=== PATIENT | male | born 1965 | race African-American/Black ===

== ENCOUNTER 2019-07-28 06:31 | Inpatient (IN) | payer MEDICAID ==
[~2019-07-28] VITALS: Ht 175.3 cm; Wt 126.4 kg
[2019-07-28 08:21] LABS: CHLORIDE 103 mEq/L (98-107)
[2019-07-28 08:24] LABS: INR 1.5; PROTHROMBIN TIME 15.6 sec (9.6-11.0)
[2019-07-28] MEDS ORDERED: MORPHINE SULFATE 4 MG/ML CPJ (NOT FOR IM USE) IV STA (08:28)
[2019-07-28] MEDS ORDERED: ONDANSETRON HCL 4MG/2ML INJ IV STA (08:28)
[2019-07-28 08:31] LABS: BASOPHILS % 0.6 % (0.0-2.0); EOSINOPHILS % 2.9 % (0.0-5.0); HEMATOCRIT. 45.2 % (42.0-52.0); HEMOGLOBIN. 15.7 g/dL (14.0-18.0); LYMPHOCYTES % 27.5 % (20.0-50.0); MEAN CORPUSCULAR HEMOGLOBIN 29.5 pg (28.0-32.0); MEAN CORPUSCULAR VOLUME 84.8 fL (80.0-94.0); MEAN PLATELET VOLUME 8.8 fl (7.4-10.4); MONOCYTES % 9.7 % (2.0-8.0); NEUTROPHILS % 59.3 % (40.0-76.0); PLATELET 195 x1000/uL (130-400); RED BLOOD CELL COUNT 5.33 mill/uL (4.7-6.1); RED CELL DISTRIBUTION WIDTH 15.8 % (11.6-14.6)
[2019-07-28 09:35] LABS: CLARITY URINE CLEAR (CLEAR); COLOR URINE YELLOW (YELLOW); KETONES URINE NEGATIVE (NEGATIVE); LEUKOCYTE ESTERASE URINE 1+ (NEGATIVE); NITRITE URINE NEGATIVE (NEGATIVE); OCCULT BLOOD URINE NEGATIVE (NEGATIVE); PROTEIN URINE NEGATIVE (NEGATIVE); UROBILINOGEN URINE 0.2 E.U./dL (0.2-1.0)
[2019-07-28] MEDS ORDERED: CEFTRIAXONE 1 G PREMIX 50 ML IV ONE (10:00)
[2019-07-28] MEDS: SODIUM CHLORIDE 0.9% 1,000 ML IV SCH (11:25)
[2019-07-28] MEDS ORDERED: ACETAMINOPHEN 325MG TABLET PO PRN (11:30)
[2019-07-28] MEDS ORDERED: CLONIDINE 0.1MG TABLET PO PRN (11:30)
[2019-07-28] MEDS ORDERED: ONDANSETRON HCL 4MG/2ML INJ IV PRN (11:30)
[2019-07-28] MEDS ORDERED: IPRATROPIUM/ALBUTEROL 0.5-3(2.5)MG/3ML NEB HHN PRN (11:30)
[2019-07-28] MEDS ORDERED: LORAZEPAM 2MG/ML CPJ IV ONE (11:45)
[2019-07-28 20:00] VITALS: BP 146/83
[2019-07-28] MEDS ORDERED: DEXTROSE 50% WATER 50ML SYRINGE IV PRN (21:00)
[2019-07-28] MEDS: BLOOD SUGAR DIAGNOSTIC STRIP TEST SCH (21:25)
[2019-07-28] MEDS: INSULIN LISPRO 100 UNITS/ML SUBCUT SCH (21:52)
[2019-07-28] MEDS: MORPHINE SULFATE 2 MG/ML CPJ (NOT FOR IM USE) IV PRN (21:57)
[2019-07-29] VITALS: BP 140/82
[2019-07-29] MEDS ORDERED: INSU100V3 SUBCUT (00:59)
[2019-07-29] MEDS ORDERED: METF-414 MT (00:59)
[2019-07-29] MEDS: SODIUM CHLORIDE 0.9% 1,000 ML IV SCH ×2 (03:33→11:31)
[2019-07-29 04:00] VITALS: BP 143/78
[2019-07-29 06:29] LABS: BASOPHILS % 0.7 % (0.0-2.0); EOSINOPHILS % 2.4 % (0.0-5.0); LYMPHOCYTES % 33.4 % (20.0-50.0); MEAN CORPUSCULAR HEMOGLOBIN 28.9 pg (28.0-32.0); MEAN CORPUSCULAR VOLUME 84.6 fL (80.0-94.0); MEAN PLATELET VOLUME 8.6 fl (7.4-10.4); MONOCYTES % 12.6 % (2.0-8.0); NEUTROPHILS % 50.9 % (40.0-76.0); PLATELET 168 x1000/uL (130-400); RED CELL DISTRIBUTION WIDTH 15.3 % (11.6-14.6)
[2019-07-29 06:54] LABS: CHLORIDE 107 mEq/L (98-107)
[2019-07-29] MEDS: BLOOD SUGAR DIAGNOSTIC STRIP TEST SCH ×4 (06:56→20:50)
[2019-07-29 07:04] LABS: LDL CHOLESTEROL 85 mg/dL (5-100)
[2019-07-29 07:06] LABS: HDL CHOLESTEROL 32 mg/dL (40-59)
[2019-07-29] MEDS: INSULIN LISPRO 100 UNITS/ML SUBCUT SCH ×4 (07:50→21:02)
[2019-07-29 08:00] VITALS: BP 130/76
[2019-07-29] MEDS: MORPHINE SULFATE 2 MG/ML CPJ (NOT FOR IM USE) IV PRN (09:03)
[2019-07-29 12:00] VITALS: BP 120/72
[2019-07-29 16:00] VITALS: BP 134/86
[2019-07-29] MEDS: DEXAMETHASONE 4MG/ML 1ML VIAL IV SCH ×2 (17:20→23:36)
[2019-07-29 17:23] LABS: INR 1.5; PROTHROMBIN TIME 15.9 sec (9.6-11.0)
[2019-07-29] MEDS: DEXT 5%/LACTATED RINGERS 1,000 ML IV SCH (18:23)
[2019-07-29] MEDS: NICOTINE 21MG PATCH TD SCH (18:47)
[2019-07-29 20:00] VITALS: BP 152/74
[2019-07-30] VITALS: BP 148/59
[2019-07-30 04:00] VITALS: BP 124/58
[2019-07-30] MEDS: DEXAMETHASONE 4MG/ML 1ML VIAL IV SCH ×4 (06:07→23:15)
[2019-07-30] MEDS: BLOOD SUGAR DIAGNOSTIC STRIP TEST SCH ×4 (06:24→21:18)
[2019-07-30 07:07] LABS: INR 1.3; PROTHROMBIN TIME 13.9 sec (9.6-11.0)
[2019-07-30] MEDS: DEXT 5%/LACTATED RINGERS 1,000 ML IV SCH ×2 (07:24→21:13)
[2019-07-30 08:00] VITALS: BP 127/60
[2019-07-30] MEDS: INSULIN LISPRO 100 UNITS/ML SUBCUT SCH ×4 (08:41→21:22)
[2019-07-30] MEDS: NICOTINE 21MG PATCH TD SCH (08:45)
[2019-07-30 12:00] VITALS: BP 126/67
[2019-07-30 14:53] LABS: BG BASE EXCESS -0.4 mmol/L (-2.0-2.0); BG CARBOXYHEMOGLOBIN 0.6 % (0.5-1.5); BG DEOXYHEMOGLOBIN 2.3 % (0.0-5.0); BG FRACTION INSPIRED OXYGEN 21; BG HCO3 ACT 22.9 mmol/L (22.0-26.0); BG METHEMOGLOBIN 0.1 % (0.0-1.5); BG OXYGEN SATURATION 97.7 % (92.0-98.5); BG PCO2 34.3 mmHg (35.0-45.0); BG PH 7.443 (7.350-7.450); BG PO2 100.1 mmHg (75.0-100.0); BG SAMPLE SITE RIGHT RADIAL; BG TOTAL HEMOGLOBIN 16.1 g/dL (12.0-18.0); BG VENT MODE ROOM AIR
[2019-07-30 16:00] VITALS: BP 127/69
[2019-07-30] MEDS ORDERED: PHYTONADIONE 10MG/ML AMP SUBCUT NR (16:00)
[2019-07-30 20:00] VITALS: BP 132/64
[2019-07-31] VITALS (51 sets, daily range): BP systolic 108–165; BP diastolic 20–120
[2019-07-31 05:14] LABS: BASOPHILS % 0.5 % (0.0-2.0); HEMOGLOBIN. 14.9 g/dL (14.0-18.0); MEAN CORPUSCULAR HEMOGLOBIN 29.2 pg (28.0-32.0); MEAN CORPUSCULAR VOLUME 84.7 fL (80.0-94.0); MONOCYTES % 2.1 % (2.0-8.0); NEUTROPHILS % 88.4 % (40.0-76.0); PLATELET 161 x1000/uL (130-400); RED BLOOD CELL COUNT 5.08 mill/uL (4.7-6.1); RED CELL DISTRIBUTION WIDTH 15.5 % (11.6-14.6)
[2019-07-31 05:16] LABS: INR 1.2; PROTHROMBIN TIME 12.2 sec (9.6-11.0)
[2019-07-31 05:39] LABS: CHLORIDE 108 mEq/L (98-107)
[2019-07-31 05:45] LABS: PHOSPHORUS 2.8 mg/dL (2.5-4.9)
[2019-07-31] MEDS: DEXAMETHASONE 4MG/ML 1ML VIAL IV SCH ×3 (06:25→17:33)
[2019-07-31] MEDS: BLOOD SUGAR DIAGNOSTIC STRIP TEST SCH ×4 (06:25→21:49)
[2019-07-31] MEDS: INSULIN LISPRO 100 UNITS/ML SUBCUT SCH ×4 (08:02→21:55)
[2019-07-31] MEDS: NICOTINE 21MG PATCH TD SCH (08:03)
[2019-07-31] MEDS ORDERED: BACITRACIN 50,000 UNITS/VIAL ONE (10:16)
[2019-07-31] MEDS ORDERED: LIDOCAINE HCL/EPINEPHRINE 1%-EPI 1:100,000 20 ML VIAL ONE (10:16)
[2019-07-31] MEDS ORDERED: THROMBIN (BOVINE) 5000 UNITS/VIAL TOP ONE (10:16)
[2019-07-31] MEDS ORDERED: FENTANYL CITRATE/PF 50MCG/ML 2ML VIAL ONE (10:34)
[2019-07-31] MEDS ORDERED: PROPOFOL 200MG/20ML VIAL IV ONE (10:34)
[2019-07-31] MEDS ORDERED: GLYCOPYRROLATE 0.2 MG/ML 2ML VIAL ONE (10:35)
[2019-07-31] MEDS ORDERED: MIDAZOLAM HCL 2 MG/2 ML VIAL ONE (10:35)
[2019-07-31] MEDS ORDERED: EPHEDRINE SULFATE 50MG/ML VIAL ONE (10:36)
[2019-07-31] MEDS ORDERED: LIDOCAINE HCL/PF 1% 10 MG/ML 5ML VIAL ONE (10:36)
[2019-07-31] MEDS ORDERED: CEFAZOLIN SODIUM 1000MG/VIAL ONE (10:36)
[2019-07-31] MEDS ORDERED: ROCURONIUM BROMIDE 10MG/ML VIAL 5ML IV ONE (10:40)
[2019-07-31] MEDS: DEXT 5%/LACTATED RINGERS 1,000 ML IV SCH ×2 (11:00→21:50)
[2019-07-31] MEDS ORDERED: ONDANSETRON HCL 4MG/2ML INJ ONE (11:16)
[2019-07-31] MEDS ORDERED: METOCLOPRAMIDE HCL 10MG/2ML VIAL ONE (11:16)
[2019-07-31] MEDS ORDERED: MEPERIDINE HCL/PF 25MG/ML CPJ IV PRN (12:30)
[2019-07-31] MEDS ORDERED: LABETALOL HCL 20MG/4ML CARPUJECT IV PRN (12:30)
[2019-07-31] MEDS ORDERED: ONDANSETRON HCL 4MG/2ML INJ IV PRN (12:30)
[2019-07-31] MEDS ORDERED: HYDROMORPHONE HCL/PF 2MG/ML CPJ IV PRN (12:30)
[2019-07-31] MEDS ORDERED: METOCLOPRAMIDE HCL 10MG/2ML VIAL IV PRN (12:30)
[2019-07-31] MEDS ORDERED: ONDANSETRON INJ IV PRN (13:15)
[2019-07-31] MEDS ORDERED: NALOXONE INJ IV PRN (13:15)
[2019-07-31] MEDS ORDERED: DIPHENHYDRAMINE INJ IV PRN (13:15)
[2019-07-31] MEDS: NICARDIPINE 100 MG in SODIUM CHLORIDE 0.9% 60 ML IV PRN (13:46)
[2019-07-31] MEDS ORDERED: CEFAZOLIN SODIUM 1000MG/VIAL IV SCH (14:00)
[2019-07-31] MEDS: HYDROMORPHONE PCA 10MG/50ML IV PRN (14:52)
[2019-07-31] MEDS: CEFAZOLIN 1000MG PREMIX 50 ML IV SCH (21:50)
[2019-08-01] VITALS (54 sets, daily range): BP systolic 117–160; BP diastolic 27–112
[2019-08-01] MEDS: DEXAMETHASONE 4MG/ML 1ML VIAL IV SCH ×4 (00:37→18:10)
[2019-08-01] MEDS: CEFAZOLIN 1000MG PREMIX 50 ML IV SCH ×3 (01:39→18:10)
[2019-08-01] MEDS: INSULIN LISPRO 100 UNITS/ML SUBCUT SCH ×4 (07:29→21:46)
[2019-08-01] MEDS: BLOOD SUGAR DIAGNOSTIC STRIP TEST SCH ×4 (07:29→21:47)
[2019-08-01] MEDS: DEXT 5%/LACTATED RINGERS 1,000 ML IV SCH (07:29)
[2019-08-01 07:30] LABS: CHLORIDE 105 mEq/L (98-107)
[2019-08-01] MEDS: NICARDIPINE 100 MG in SODIUM CHLORIDE 0.9% 60 ML IV PRN (07:39)
[2019-08-01 08:13] LABS: HEMATOCRIT. 43.4 % (42.0-52.0); HEMOGLOBIN. 14.7 g/dL (14.0-18.0); MEAN CORPUSCULAR HEMOGLOBIN 29.1 pg (28.0-32.0); MEAN CORPUSCULAR VOLUME 85.9 fL (80.0-94.0); MEAN PLATELET VOLUME 9.2 fl (7.4-10.4); PLATELET 169 x1000/uL (130-400); RED BLOOD CELL COUNT 5.05 mill/uL (4.7-6.1); RED CELL DISTRIBUTION WIDTH 15.5 % (11.6-14.6)
[2019-08-01] MEDS: NICOTINE 21MG PATCH TD SCH (09:47)
[2019-08-01 16:37] LABS: PLATELET ESTIMATE NORMAL
[2019-08-01] MEDS: DOCUSATE SODIUM 100MG CAPSULE PO SCH (18:09)
[2019-08-01] MEDS: POLYETHYLENE GLYCOL 3350 (17GM) 1 DOSE PACK PO SCH (21:00)
[2019-08-01] MEDS: AMLODIPINE 2.5MG TABLET PO SCH (21:47)
[2019-08-01] MEDS: HYDROMORPHONE PCA 10MG/50ML IV PRN (23:20)
[2019-08-02] VITALS: BP 142/74
[2019-08-02] MEDS: DEXAMETHASONE 4MG/ML 1ML VIAL IV SCH ×4 (00:37→18:00)
[2019-08-02] MEDS: CEFAZOLIN 1000MG PREMIX 50 ML IV SCH ×2 (01:53→10:24)
[2019-08-02 04:00] VITALS: BP 143/69
[2019-08-02] MEDS: BLOOD SUGAR DIAGNOSTIC STRIP TEST SCH ×4 (06:25→21:34)
[2019-08-02 06:32] LABS: HEMOGLOBIN. 14.6 g/dL (14.0-18.0); MEAN CORPUSCULAR VOLUME 85.4 fL (80.0-94.0); PLATELET 161 x1000/uL (130-400); RED BLOOD CELL COUNT 5.04 mill/uL (4.7-6.1); RED CELL DISTRIBUTION WIDTH 15.1 % (11.6-14.6)
[2019-08-02 06:36] LABS: CHLORIDE 103 mEq/L (98-107)
[2019-08-02 08:00] VITALS: BP 145/78
[2019-08-02] MEDS: NICOTINE 21MG PATCH TD SCH (09:00)
[2019-08-02] MEDS: DOCUSATE SODIUM 100MG CAPSULE PO SCH ×2 (09:08→17:59)
[2019-08-02] MEDS: AMLODIPINE 2.5MG TABLET PO SCH ×2 (09:09→21:33)
[2019-08-02] MEDS: INSULIN LISPRO 100 UNITS/ML SUBCUT SCH ×4 (09:15→21:33)
[2019-08-02 10:43] LABS: PLATELET ESTIMATE NORMAL
[2019-08-02 12:00] VITALS: BP 144/64
[2019-08-02 16:00] VITALS: BP 148/75
[2019-08-02] MEDS ORDERED: LACTULOSE 20G/30ML UDC PO NR (17:00)
[2019-08-02 20:00] VITALS: BP 120/78
[2019-08-02] MEDS: POLYETHYLENE GLYCOL 3350 (17GM) 1 DOSE PACK PO SCH (21:52)
[2019-08-02] MEDS: HYDROCODONE/ACETAMINOPHEN 5/325MG TABLET PO PRN (23:29)
[2019-08-03] VITALS: BP 124/73
[2019-08-03] MEDS: DEXAMETHASONE 4MG/ML 1ML VIAL IV SCH ×4 (00:39→18:29)
[2019-08-03 04:00] VITALS: BP 121/71
[2019-08-03 07:17] LABS: BASOPHILS % 0.1 % (0.0-2.0); HEMATOCRIT. 42.9 % (42.0-52.0); HEMOGLOBIN. 14.8 g/dL (14.0-18.0); LYMPHOCYTES % 8.8 % (20.0-50.0); MEAN CORPUSCULAR HEMOGLOBIN 29.1 pg (28.0-32.0); MEAN CORPUSCULAR VOLUME 84.3 fL (80.0-94.0); MEAN PLATELET VOLUME 9.2 fl (7.4-10.4); MONOCYTES % 8.2 % (2.0-8.0); NEUTROPHILS % 82.9 % (40.0-76.0); PLATELET 141 x1000/uL (130-400); RED BLOOD CELL COUNT 5.08 mill/uL (4.7-6.1); RED CELL DISTRIBUTION WIDTH 15.6 % (11.6-14.6)
[2019-08-03 07:21] LABS: CHLORIDE 102 mEq/L (98-107)
[2019-08-03] MEDS: BLOOD SUGAR DIAGNOSTIC STRIP TEST SCH ×4 (07:31→20:33)
[2019-08-03 08:00] VITALS: BP 151/93
[2019-08-03] MEDS: DOCUSATE SODIUM 100MG CAPSULE PO SCH ×2 (08:48→17:00)
[2019-08-03] MEDS: HYDROCODONE/ACETAMINOPHEN 5/325MG TABLET PO PRN (08:49)
[2019-08-03] MEDS: AMLODIPINE 2.5MG TABLET PO SCH ×2 (08:49→20:47)
[2019-08-03] MEDS: INSULIN LISPRO 100 UNITS/ML SUBCUT SCH ×4 (08:51→20:39)
[2019-08-03] MEDS: NICOTINE 21MG PATCH TD SCH (08:58)
[2019-08-03 11:39] VITALS: BP 157/76
[2019-08-03] MEDS: LACTULOSE 20G/30ML UDC PO SCH ×3 (13:10→20:39)
[2019-08-03] MEDS: MORPHINE SULFATE 4 MG/ML CPJ (NOT FOR IM USE) IV PRN ×2 (14:48→22:48)
[2019-08-03 16:00] VITALS: BP 162/75
[2019-08-03 20:00] VITALS: BP 149/77
[2019-08-03] MEDS: POLYETHYLENE GLYCOL 3350 (17GM) 1 DOSE PACK PO SCH (20:40)
[2019-08-04] VITALS: BP 158/73
[2019-08-04] MEDS: DEXAMETHASONE 4MG/ML 1ML VIAL IV SCH ×5 (00:35→23:10)
[2019-08-04 04:00] VITALS: BP 157/75
[2019-08-04] MEDS: BLOOD SUGAR DIAGNOSTIC STRIP TEST SCH ×4 (05:59→21:04)
[2019-08-04] MEDS: MORPHINE SULFATE 4 MG/ML CPJ (NOT FOR IM USE) IV PRN ×2 (06:13→21:05)
[2019-08-04 08:00] VITALS: BP 143/79
[2019-08-04] MEDS: NICOTINE 21MG PATCH TD SCH (08:29)
[2019-08-04] MEDS: DOCUSATE SODIUM 100MG CAPSULE PO SCH ×2 (08:32→17:55)
[2019-08-04] MEDS: AMLODIPINE 2.5MG TABLET PO SCH ×2 (08:33→21:04)
[2019-08-04] MEDS: INSULIN LISPRO 100 UNITS/ML SUBCUT SCH ×3 (08:37→21:09)
[2019-08-04 12:00] VITALS: BP 146/79
[2019-08-04] MEDS ORDERED: DEXTROSE 50% WATER 50ML SYRINGE IV PRN (13:15)
[2019-08-04 16:00] VITALS: BP 148/69
[2019-08-04] MEDS ORDERED: BLOOD SUGAR DIAGNOSTIC STRIP TEST SCH (17:20)
[2019-08-04 20:00] VITALS: BP 150/81
[2019-08-04] MEDS: POLYETHYLENE GLYCOL 3350 (17GM) 1 DOSE PACK PO SCH (21:04)
[2019-08-05] VITALS: BP 136/64
[2019-08-05 04:00] VITALS: BP 147/83
[2019-08-05] MEDS: DEXAMETHASONE 4MG/ML 1ML VIAL IV SCH (05:15)
[2019-08-05] MEDS: MORPHINE SULFATE 4 MG/ML CPJ (NOT FOR IM USE) IV PRN (06:05)
[2019-08-05] MEDS: BLOOD SUGAR DIAGNOSTIC STRIP TEST SCH ×2 (06:05→11:37)
[2019-08-05 07:39] LABS: BASOPHILS % 0.1 % (0.0-2.0); EOSINOPHILS % 0.3 % (0.0-5.0); HEMOGLOBIN. 15.1 g/dL (14.0-18.0); LYMPHOCYTES % 15.7 % (20.0-50.0); MEAN CORPUSCULAR HEMOGLOBIN 29.1 pg (28.0-32.0); MEAN CORPUSCULAR VOLUME 84.7 fL (80.0-94.0); MEAN PLATELET VOLUME 8.6 fl (7.4-10.4); MONOCYTES % 8.4 % (2.0-8.0); NEUTROPHILS % 75.5 % (40.0-76.0); PLATELET 103 x1000/uL (130-400); RED CELL DISTRIBUTION WIDTH 15.3 % (11.6-14.6)
[2019-08-05] MEDS: INSULIN LISPRO 100 UNITS/ML SUBCUT SCH ×2 (07:50→08:12)
[2019-08-05 07:54] LABS: CHLORIDE 101 mEq/L (98-107)
[2019-08-05 08:00] VITALS: BP 140/72
[2019-08-05] MEDS: DOCUSATE SODIUM 100MG CAPSULE PO SCH (08:32)
[2019-08-05] MEDS: AMLODIPINE 2.5MG TABLET PO SCH (08:32)
[2019-08-05] MEDS: NICOTINE 21MG PATCH TD SCH (08:32)
[2019-08-05] MEDS ORDERED: INSU100I28 SQ (08:35)
[2019-08-05 12:00] VITALS: BP 146/75
[2019-08-05] MEDS ORDERED: INSULIN GLARGINE UD 100 UNITS/ML SYR SUBCUT SCH ×2 (12:00)
[2019-08-05] MEDS ORDERED: AMLO2.5T45 PO (12:41)
[2019-08-05] MEDS ORDERED: DEXA4TAB MT (12:41)
[2019-08-05 13:01] VITALS: BP 146/75
[2019-08-05] MEDS ORDERED: DEXAMETHASONE 4MG/ML 1ML VIAL IV SCH (17:00)
[2019-08-05] MEDS ORDERED: METFORMIN HCL 500MG TABLET PO SCH (17:50)
== END 2019-08-05 14:16 | disposition home or self-care (01) | DRG 321 ==
LOC: ER 06:31 → EDBEDREQSVC 10:01 → EDBEDREQ 10:01 → EDBEDREQTM 10:01 → 6EST 11:34 → EDBEDREQ 11:36 → EDBEDREQTM 11:36 → ENRESERV 19:08 → 5EST 07-31 12:12 → 6EST 08-01 15:40
PROVIDERS: ADMIT Internal Medicine; ATTEND Internal Medicine
PROC: 5A09357 Assistance with Respiratory Ventilation, Less than 24 Consecutive Hours, Continuous Positive Airway Pressure (ICD-10-PCS; 2019-07-30)
PROC: 0RG10AJ Fusion of Cervical Vertebral Joint with Interbody Fusion Device, Posterior Approach, Anterior Column, Open Approach (ICD-10-PCS; principal; 2019-07-31)
PROC: 0RG20AJ Fusion of 2 or more Cervical Vertebral Joints with Interbody Fusion Device, Posterior Approach, Anterior Column, Open Approach (ICD-10-PCS; 2019-07-31)
PROC: 00BW0ZZ Excision of Cervical Spinal Cord, Open Approach (ICD-10-PCS; 2019-07-31)
DX: M48.02 Spinal stenosis, cervical region (principal); G82.50 Quadriplegia, unspecified; E66.01 Morbid (severe) obesity due to excess calories; M47.12 Other spondylosis with myelopathy, cervical region; I82.511 Chronic embolism and thrombosis of right femoral vein; R13.10 Dysphagia, unspecified; M47.816 Spondylosis without myelopathy or radiculopathy, lumbar region; G95.20 Unspecified cord compression; M48.061 Spinal stenosis, lumbar region without neurogenic claudication; E11.9 Type 2 diabetes mellitus without complications; E78.00 Pure hypercholesterolemia, unspecified; F12.90 Cannabis use, unspecified, uncomplicated; E78.5 Hyperlipidemia, unspecified; J44.9 Chronic obstructive pulmonary disease, unspecified; M50.121 Cervical disc disorder at C4-C5 level with radiculopathy; M50.122 Cervical disc disorder at C5-C6 level with radiculopathy; D72.829 Elevated white blood cell count, unspecified; F17.210 Nicotine dependence, cigarettes, uncomplicated; G47.33 Obstructive sleep apnea (adult) (pediatric); G89.29 Other chronic pain; Z79.4 Long term (current) use of insulin; Z79.01 Long term (current) use of anticoagulants; Z95.828 Presence of other vascular implants and grafts; Z68.41 Body mass index [BMI] 40.0-44.9, adult; Z95.820 Peripheral vascular angioplasty status with implants and grafts; Z79.84 Long term (current) use of oral hypoglycemic drugs; Z79.899 Other long term (current) drug therapy; Z03.818 Encounter for observation for suspected exposure to other biological agents ruled out
CPT/HCPCS: 36415; 36600; 71045; 72040; 72141; 72146; 72148; 76000; 80048; 80053; 80061; 81003; 82375; 82805; 82962; 83036; 83735; 84100; 84443; 85025; 86850; 86900; 86927; 88304; 88311; 92610; 93005; 93306; 93970; 96365; 97116; 97162; 97166; 97530; 97535; 99291; C1713; J0690; J0696; J1100; J1170; J1815; J2060; J2250; J2270; J2405; J2704; J2765; J3010; J3430; J3490; J7050; J7121; L0172; P9017; U0003-CS

== ENCOUNTER 2019-08-30 12:20 | Emergency (ER) | payer MEDICAID ==
[~2019-08-30] VITALS: Ht 172.7 cm; Wt 55.0 kg
[~2019-08-30 12:20] MED LIST: AMLO2.5T45 PO; DEXA4TAB MT; INSU100I28 SQ; INSU100V3 SUBCUT; METF-414 MT
[2019-08-30] MEDS ORDERED: KETOROLAC 30MG/ML VIAL IV STA (12:44)
[2019-08-30] MEDS ORDERED: SODIUM CHLORIDE 0.9% 1,000 ML IV ONE (12:44)
[2019-08-30] MEDS ORDERED: AMPICILLIN SOD/SULBACTAM NA 3 G in SODIUM CHLORIDE 0.9% 100 ML IV STA (12:45)
[2019-08-30 13:21] LABS: BASOPHILS % 0.7 % (0.0-2.0); EOSINOPHILS % 1.3 % (0.0-5.0); HEMATOCRIT. 37.5 % (42.0-52.0); HEMOGLOBIN. 12.5 g/dL (14.0-18.0); LYMPHOCYTES % 12.2 % (20.0-50.0); MEAN CORPUSCULAR HEMOGLOBIN 28.2 pg (28.0-32.0); MEAN CORPUSCULAR VOLUME 84.8 fL (80.0-94.0); MEAN PLATELET VOLUME 8.1 fl (7.4-10.4); MONOCYTES % 10.5 % (2.0-8.0); NEUTROPHILS % 75.3 % (40.0-76.0); PLATELET 254 x1000/uL (130-400); RED BLOOD CELL COUNT 4.42 mill/uL (4.7-6.1); RED CELL DISTRIBUTION WIDTH 15.2 % (11.6-14.6)
[2019-08-30 13:28] LABS: CHLORIDE 104 mEq/L (98-107)
[2019-08-30 13:34] LABS: ETHANOL BLOOD < 10 mg/dL
[2019-08-30 14:30] VITALS: BP 150/78
== END 2019-08-30 17:09 | disposition home or self-care (01) ==
LOC: ER 12:23
DX: K04.7 Periapical abscess without sinus (principal); E11.9 Type 2 diabetes mellitus without complications; E78.00 Pure hypercholesterolemia, unspecified; I10 Essential (primary) hypertension; R22.0 Localized swelling, mass and lump, head; Z79.899 Other long term (current) drug therapy; Z79.4 Long term (current) use of insulin
CPT/HCPCS: 36415; 70450; 70486; 80053; 80320; 85025; 93005; 96365; 96375; 99285; J0295; J1885; J7030; J7050; G0480

== ENCOUNTER 2019-08-30 17:49 | Emergency (ER) | payer MEDICAID ==
[~2019-08-30] VITALS: Ht 177.8 cm; Wt 113.0 kg
[2019-08-30 18:52] LABS: BASOPHILS % 0.2 % (0.0-2.0); EOSINOPHILS % 0.9 % (0.0-5.0); HEMATOCRIT. 38.2 % (42.0-52.0); HEMOGLOBIN. 12.8 g/dL (14.0-18.0); LYMPHOCYTES % 14.6 % (20.0-50.0); MEAN CORPUSCULAR HEMOGLOBIN 28.4 pg (28.0-32.0); MEAN CORPUSCULAR VOLUME 84.9 fL (80.0-94.0); MEAN PLATELET VOLUME 8.6 fl (7.4-10.4); NEUTROPHILS % 75.3 % (40.0-76.0); PLATELET 280 x1000/uL (130-400); RED CELL DISTRIBUTION WIDTH 15.4 % (11.6-14.6)
[2019-08-30 19:22] LABS: CHLORIDE 106 mEq/L (98-107)
[2019-08-30 19:26] LABS: ETHANOL BLOOD < 10 mg/dL
[2019-08-30 19:31] LABS: CREATINE KINASE 250 IU/L (39-308)
[2019-08-30 20:37] LABS: CLARITY URINE CLOUDY (CLEAR); COLOR URINE ORANGE (YELLOW); KETONES URINE TRACE (NEGATIVE); LEUKOCYTE ESTERASE URINE 3+ (NEGATIVE); NITRITE URINE POSITIVE (NEGATIVE); OCCULT BLOOD URINE 1+ (NEGATIVE); PROTEIN URINE 2+ (NEGATIVE); SPECIFIC GRAVITY URINE 1.025 (1.005-1.030)
[2019-08-30 20:48] LABS: *AMPHETAMINES SCREEN URINE NEGATIVE (NEGATIVE)
[2019-08-30 20:49] LABS: *BARBITURATES SCREEN URINE NEGATIVE (NEGATIVE); *BENZODIAZEPINES SCREEN URINE NEGATIVE (NEGATIVE); *COCAINE SCREEN URINE NEGATIVE (NEGATIVE); METHADONE URINE SCREEN NEGATIVE (NEGATIVE); OPIATES URINE SCREEN PRESUMTIVE POSITIVE (NEGATIVE)
[2019-08-30 20:50] LABS: CANNABINOID URINE SCREEN PRESUMTIVE POSITIVE (NEGATIVE); PHENCYCLIDINE URINE SCREEN NEGATIVE (NEGATIVE)
[2019-08-30] MEDS ORDERED: AMOXICILLIN 500 MG CAPSULE PO ONE (21:15)
[2019-08-30 21:35] VITALS: BP 141/74
== END 2019-08-30 21:36 | disposition home or self-care (01) ==
LOC: ER 17:49
DX: T40.7X1A Poisoning by cannabis (derivatives), accidental (unintentional), initial encounter (principal); Y92.89 Other specified places as the place of occurrence of the external cause; K04.7 Periapical abscess without sinus; E11.9 Type 2 diabetes mellitus without complications; E78.00 Pure hypercholesterolemia, unspecified; I10 Essential (primary) hypertension; F14.10 Cocaine abuse, uncomplicated; M54.30 Sciatica, unspecified side; Z79.4 Long term (current) use of insulin; Z79.899 Other long term (current) drug therapy
CPT/HCPCS: 36415; 80053; 80305; 80320; 81003; 82140; 82550; 82962; 85025; 93005; 99284; G0480

== ENCOUNTER 2019-08-31 00:59 | Inpatient (IN) | payer MEDICAID ==
[~2019-08-31] VITALS: Ht 172.7 cm; Wt 125.6 kg
[2019-08-31] MEDS ORDERED: LORAZEPAM 2MG/ML CPJ IM STA (01:05)
[2019-08-31] MEDS ORDERED: HALOPERIDOL LACTATE 5MG/ML VIAL IM STA (01:05)
[2019-08-31] MEDS ORDERED: SODIUM CHLORIDE 0.9% 1,000 ML IV ONE (02:25)
[2019-08-31] MEDS ORDERED: CEFTRIAXONE 1 G PREMIX 50 ML IV ONE (02:30)
[2019-08-31 03:00] LABS: BASOPHILS % 0.5 % (0.0-2.0); EOSINOPHILS % 0.9 % (0.0-5.0); HEMOGLOBIN. 12.6 g/dL (14.0-18.0); LYMPHOCYTES % 9.1 % (20.0-50.0); MEAN CORPUSCULAR HEMOGLOBIN 28.2 pg (28.0-32.0); MEAN CORPUSCULAR VOLUME 84.8 fL (80.0-94.0); MEAN PLATELET VOLUME 8.1 fl (7.4-10.4); MONOCYTES % 9.7 % (2.0-8.0); NEUTROPHILS % 79.8 % (40.0-76.0); PLATELET 241 x1000/uL (130-400); RED BLOOD CELL COUNT 4.48 mill/uL (4.7-6.1); RED CELL DISTRIBUTION WIDTH 15.4 % (11.6-14.6)
[2019-08-31 03:04] LABS: CHLORIDE 103 mEq/L (98-107)
[2019-08-31 03:08] LABS: ETHANOL BLOOD < 10 mg/dL
[2019-08-31] MEDS ORDERED: AMOXICILLIN/POTASSIUM CLAVULANATE 875/125MG TAB PO SCH (09:00)
[2019-08-31] MEDS ORDERED: VANCOMYCIN 1 G PREMIX 200 ML IV ONE (12:30)
[2019-08-31] MEDS ORDERED: PIPERACILLIN/TAZ 3.375G PREMIX 50 ML IV ONE (12:30)
[2019-08-31 12:47] LABS: BASOPHILS % 0.5 % (0.0-2.0); EOSINOPHILS % 1.3 % (0.0-5.0); HEMATOCRIT. 36.4 % (42.0-52.0); HEMOGLOBIN. 12.1 g/dL (14.0-18.0); LYMPHOCYTES % 10.9 % (20.0-50.0); MEAN CORPUSCULAR HEMOGLOBIN 28.3 pg (28.0-32.0); MEAN CORPUSCULAR VOLUME 84.8 fL (80.0-94.0); MEAN PLATELET VOLUME 8.2 fl (7.4-10.4); NEUTROPHILS % 77.3 % (40.0-76.0); PLATELET 253 x1000/uL (130-400); RED BLOOD CELL COUNT 4.29 mill/uL (4.7-6.1); RED CELL DISTRIBUTION WIDTH 15.2 % (11.6-14.6)
[2019-08-31] MEDS ORDERED: ONDANSETRON HCL 4MG/2ML INJ IV PRN (14:45)
[2019-08-31] MEDS ORDERED: POTASSIUM CHLORIDE 20MEQ TABLET SR PO NR (14:45)
[2019-08-31] MEDS ORDERED: ACETAMINOPHEN 325MG TABLET PO PRN (14:45)
[2019-08-31] MEDS ORDERED: KETOROLAC 30MG/ML VIAL IV PRN (14:45)
[2019-08-31 15:30] VITALS: BP 137/77
[2019-08-31] MEDS: BLOOD SUGAR DIAGNOSTIC STRIP TEST SCH ×2 (17:30→20:17)
[2019-08-31] MEDS ORDERED: DEXTROSE 50% WATER 50ML SYRINGE IV PRN (17:45)
[2019-08-31] MEDS: INSULIN LISPRO 100 UNITS/ML SUBCUT SCH ×2 (17:50→20:17)
[2019-08-31] MEDS ORDERED: VANCOMYCIN 1500MG in DEXTROSE 5% WATER 250ML IV SCH (18:00)
[2019-08-31] MEDS ORDERED: PIPERACILLIN/TAZOBACTAM 3.375 G in DEXT 5% WATER 100 ML IV SCH (18:00)
[2019-08-31] MEDS ORDERED: PIPERACILLIN/TAZ 3.375G PREMIX 50 ML IV NR (18:00)
[2019-08-31 20:00] VITALS: BP 127/83
[2019-08-31] MEDS: AMPICILLIN SOD/SULBACTAM NA 3 G in SODIUM CHLORIDE 0.9% 100 ML IV SCH (21:19)
[2019-08-31 23:40] LABS: CLARITY URINE CLEAR (CLEAR); COLOR URINE YELLOW (YELLOW); KETONES URINE NEGATIVE (NEGATIVE); LEUKOCYTE ESTERASE URINE TRACE (NEGATIVE); NITRITE URINE NEGATIVE (NEGATIVE); OCCULT BLOOD URINE NEGATIVE (NEGATIVE); PROTEIN URINE NEGATIVE (NEGATIVE); SPECIFIC GRAVITY URINE 1.014 (1.005-1.030)
[2019-08-31 23:50] LABS: *COCAINE SCREEN URINE NEGATIVE (NEGATIVE); METHADONE URINE SCREEN NEGATIVE (NEGATIVE); OPIATES URINE SCREEN NEGATIVE (NEGATIVE)
[2019-08-31 23:51] LABS: *AMPHETAMINES SCREEN URINE NEGATIVE (NEGATIVE); *BARBITURATES SCREEN URINE NEGATIVE (NEGATIVE); *BENZODIAZEPINES SCREEN URINE NEGATIVE (NEGATIVE); CANNABINOID URINE SCREEN PRESUMTIVE POSITIVE (NEGATIVE); PHENCYCLIDINE URINE SCREEN NEGATIVE (NEGATIVE)
[2019-09-01] VITALS: BP 127/53
[2019-09-01] MEDS ORDERED: PIPERACILLIN/TAZOBACTAM 3.375 G in DEXT 5% WATER 100 ML IV SCH ×2
[2019-09-01] MEDS: AMPICILLIN SOD/SULBACTAM NA 3 G in SODIUM CHLORIDE 0.9% 100 ML IV SCH ×4 (03:40→22:00)
[2019-09-01 04:00] VITALS: BP 147/76
[2019-09-01] MEDS: BLOOD SUGAR DIAGNOSTIC STRIP TEST SCH ×4 (06:25→21:34)
[2019-09-01] MEDS: INSULIN LISPRO 100 UNITS/ML SUBCUT SCH ×4 (07:38→21:00)
[2019-09-01 08:00] VITALS: BP 149/80
[2019-09-01 20:00] VITALS: BP 140/74
[2019-09-02] VITALS: BP 127/76
[2019-09-02] MEDS: AMPICILLIN SOD/SULBACTAM NA 3 G in SODIUM CHLORIDE 0.9% 100 ML IV SCH (03:02)
[2019-09-02 04:00] VITALS: BP_SYST 109; BP_SYST 150; BP_DIAS 73
[2019-09-02] MEDS: INSULIN LISPRO 100 UNITS/ML SUBCUT SCH (07:50)
[2019-09-02] MEDS: BLOOD SUGAR DIAGNOSTIC STRIP TEST SCH (07:53)
[2019-09-02 08:00] VITALS: BP 141/74
[2019-09-02 12:00] VITALS: BP 136/78
== END 2019-09-02 09:50 | disposition home or self-care (01) | DRG 383 ==
LOC: ER 00:59 → EDBEDREQ 12:40 → EDBEDREQTM 12:40 → EDBEDREQ 13:27 → ENRESERV 14:27 → 6EST 15:17
PROVIDERS: ADMIT Internal Medicine; ATTEND Internal Medicine
DX: L03.211 Cellulitis of face (principal); G93.41 Metabolic encephalopathy; I10 Essential (primary) hypertension; D64.9 Anemia, unspecified; E11.9 Type 2 diabetes mellitus without complications; E44.0 Moderate protein-calorie malnutrition; E78.00 Pure hypercholesterolemia, unspecified; E78.5 Hyperlipidemia, unspecified; E87.6 Hypokalemia; M54.30 Sciatica, unspecified side; E66.01 Morbid (severe) obesity due to excess calories; F12.90 Cannabis use, unspecified, uncomplicated; Z79.84 Long term (current) use of oral hypoglycemic drugs; Z79.899 Other long term (current) drug therapy; Z78.1 Physical restraint status; Z68.41 Body mass index [BMI] 40.0-44.9, adult
CPT/HCPCS: 36415; 80053; 80305; 80307; 80320; 80329; 81003; 82962; 83605; 85025; 99285; J0295; J0696; J1630; J2060; J2543; J3370; J7030; J7050; J7060; G0480

== ENCOUNTER 2019-09-09 21:23 | Emergency (ER) | payer MEDICAID, OTHER ==
[~2019-09-09] VITALS: Ht 177.8 cm; Wt 106.0 kg
[~2019-09-09 21:23] MED LIST changes: -DEXA4TAB MT
[2019-09-09] MEDS ORDERED: LORAZEPAM 2MG/ML CPJ IM ONE (22:45)
[2019-09-09] MEDS ORDERED: HALOPERIDOL LACTATE 5MG/ML VIAL IM ONE (22:45)
[2019-09-10] MEDS ORDERED: LORAZEPAM 2MG/ML CPJ IM ONE
[2019-09-10] MEDS ORDERED: HALOPERIDOL LACTATE 5MG/ML VIAL IM ONE
[2019-09-10 01:08] LABS: CHLORIDE 109 mEq/L (98-107)
[2019-09-10 01:11] LABS: BASOPHILS % 0.8 % (0.0-2.0); EOSINOPHILS % 2.2 % (0.0-5.0); HEMATOCRIT. 36.6 % (42.0-52.0); HEMOGLOBIN. 12.3 g/dL (14.0-18.0); LYMPHOCYTES % 19.1 % (20.0-50.0); MEAN CORPUSCULAR VOLUME 83.7 fL (80.0-94.0); MEAN PLATELET VOLUME 8.6 fl (7.4-10.4); MONOCYTES % 9.5 % (2.0-8.0); NEUTROPHILS % 68.4 % (40.0-76.0); PLATELET 228 x1000/uL (130-400); RED BLOOD CELL COUNT 4.38 mill/uL (4.7-6.1); RED CELL DISTRIBUTION WIDTH 15.2 % (11.6-14.6)
[2019-09-10 01:15] LABS: ETHANOL BLOOD < 10 mg/dL
[2019-09-10] MEDS ORDERED: HYDRALAZINE 20MG/ML VIAL IV PRN (05:00)
[2019-09-10 09:27] LABS: CLARITY URINE CLOUDY (CLEAR); COLOR URINE DK YELLOW (YELLOW); KETONES URINE NEGATIVE (NEGATIVE); LEUKOCYTE ESTERASE URINE 1+ (NEGATIVE); NITRITE URINE NEGATIVE (NEGATIVE); OCCULT BLOOD URINE NEGATIVE (NEGATIVE); PH URINE 5.5 (4.5-8.0); PROTEIN URINE TRACE (NEGATIVE); UROBILINOGEN URINE 0.2 E.U./dL (0.2-1.0)
[2019-09-10 10:24] LABS: *AMPHETAMINES SCREEN URINE NEGATIVE (NEGATIVE); *BARBITURATES SCREEN URINE NEGATIVE (NEGATIVE); *BENZODIAZEPINES SCREEN URINE NEGATIVE (NEGATIVE); *COCAINE SCREEN URINE NEGATIVE (NEGATIVE); METHADONE URINE SCREEN NEGATIVE (NEGATIVE); OPIATES URINE SCREEN NEGATIVE (NEGATIVE)
[2019-09-10 10:25] LABS: CANNABINOID URINE SCREEN PRESUMTIVE POSITIVE (NEGATIVE); PHENCYCLIDINE URINE SCREEN NEGATIVE (NEGATIVE)
[2019-09-12 11:00] VITALS: BP 138/72
== END 2019-09-12 11:00 | disposition home or self-care (01) ==
LOC: ER 21:23
DX: T40.7X1A Poisoning by cannabis (derivatives), accidental (unintentional), initial encounter (principal); F23 Brief psychotic disorder; R45.851 Suicidal ideations; R45.850 Homicidal ideations; E11.9 Type 2 diabetes mellitus without complications; E78.00 Pure hypercholesterolemia, unspecified; I10 Essential (primary) hypertension; M54.30 Sciatica, unspecified side; R45.1 Restlessness and agitation; Z20.828 Contact with and (suspected) exposure to other viral communicable diseases; Z98.890 Other specified postprocedural states; Y92.89 Other specified places as the place of occurrence of the external cause
CPT/HCPCS: 36415; 93005; 96372; 99285; C9803; J1630; J2060; U0003

== ENCOUNTER 2020-10-22 01:24 | Emergency (ER) | payer MEDICAID ==
[~2020-10-22] VITALS: Ht 177.8 cm; Wt 137.0 kg
[2020-10-22] MEDS ORDERED: SODIUM CHLORIDE 0.9% 1,000 ML IV ONE (01:45)
[2020-10-22 02:18] LABS: BASOPHILS % 0.5 % (0.0-2.0); EOSINOPHILS % 0.1 % (0.0-5.0); HEMATOCRIT. 45.4 % (42.0-52.0); HEMOGLOBIN. 15.7 g/dL (14.0-18.0); LYMPHOCYTES % 15.2 % (20.0-50.0); MEAN CORPUSCULAR HEMOGLOBIN 28.6 pg (28.0-32.0); MEAN CORPUSCULAR VOLUME 82.9 fL (80.0-94.0); MEAN PLATELET VOLUME 8.4 fl (7.4-10.4); MONOCYTES % 11.7 % (2.0-8.0); NEUTROPHILS % 72.5 % (40.0-76.0); PLATELET 119 x1000/uL (130-400); RED BLOOD CELL COUNT 5.48 mill/uL (4.7-6.1); RED CELL DISTRIBUTION WIDTH 15.3 % (11.6-14.6)
[2020-10-22 02:23] LABS: CHLORIDE 101 mEq/L (98-107)
[2020-10-22] MEDS ORDERED: LOPE1LIQ42 PO (03:29)
[2020-10-22 04:24] VITALS: BP 122/56
== END 2020-10-22 05:21 | disposition home or self-care (01) ==
LOC: ER 01:31
DX: S00.212A Abrasion of left eyelid and periocular area, initial encounter (principal); U07.1 COVID-19; E86.0 Dehydration; R55 Syncope and collapse; R42 Dizziness and giddiness; R19.7 Diarrhea, unspecified; E11.9 Type 2 diabetes mellitus without complications; E78.00 Pure hypercholesterolemia, unspecified; I10 Essential (primary) hypertension; M54.30 Sciatica, unspecified side; F14.10 Cocaine abuse, uncomplicated; Z79.4 Long term (current) use of insulin; W01.0XXA Fall on same level from slipping, tripping and stumbling without subsequent striking against object, initial encounter; Y93.89 Activity, other specified; Y92.012 Bathroom of single-family (private) house as the place of occurrence of the external cause
CPT/HCPCS: 36415; 70450; 71045; 74176; 80053; 83605; 85025; 87040; 87426; 93005; 99285; J7030

== ENCOUNTER 2022-11-01 19:58 | Inpatient (IN) | payer MEDICAID ==
[~2022-11-01] VITALS: Ht 175.3 cm; Wt 139.9 kg
[~2022-11-01 19:58] MED LIST changes: +LOPE1LIQ42 PO
[2022-11-01] MEDS ORDERED: MORPHINE SULFATE 4 MG/ML CPJ (NOT FOR IM USE) IV STA (20:27)
[2022-11-01] MEDS ORDERED: ONDANSETRON HCL 4MG/2ML INJ IV STA (20:27)
[2022-11-01] MEDS ORDERED: SODIUM CHLORIDE 0.9% 1,000 ML IV ONE (21:30)
[2022-11-01 21:38] LABS: BASOPHILS % 0.8 % (0.0-2.0); DIFFERENTIAL COMMENT 0; EOSINOPHILS % 1.8 % (0.0-5.0); HEMATOCRIT. 40.3 % (42.0-52.0); HEMOGLOBIN. 13.3 g/dL (14.0-18.0); LYMPHOCYTES % 10.5 % (20.0-50.0); MEAN CORPUSCULAR HEMOGLOBIN 26.1 pg (28.0-32.0); MEAN CORPUSCULAR HGB CONC 32.9 g/dL (31.0-37.0); MEAN CORPUSCULAR VOLUME 79.4 fL (80.0-94.0); MEAN PLATELET VOLUME 8.6 fl (7.4-10.4); MONOCYTES % 9.5 % (2.0-8.0); NEUTROPHILS % 77.4 % (40.0-76.0); PLATELET 181 x1000/uL (130-400); RED BLOOD CELL COUNT 5.07 mill/uL (4.7-6.1); RED CELL DISTRIBUTION WIDTH 16.5 % (11.6-14.6); WHITE BLOOD COUNT 12.6 x1000/uL (4.5-11.0)
[2022-11-01 21:48] LABS: CHLORIDE 103 mEq/L (98-107); INDEX HEMOLYSI 1 (1-3); INDEX ICTERIC 1 (1-4); INDEX LIPEMIC 1 (1-3); POTASSIUM 3.6 mEq/L (3.5-5.1); SODIUM 132 mEq/L (136-145)
[2022-11-01 21:57] LABS: ALANINE AMINOTRANSFERASE 15 IU/L (13-61); ALBUMIN 3.2 g/dL (3.4-5.0); ASPARTATE AMINOTRANSFERASE 9 IU/L (15-37); BILIRUBIN TOTAL 0.8 mg/dL (0.1-1.0); CARBON DIOXIDE 21 mEq/L (21-32); CREATININE 0.9 mg/dL (0.6-1.3); GLUCOSE 204 mg/dL (70-105); PROTEIN TOTAL 7.6 g/dL (6.0-8.3); UREA NITROGEN BLOOD 8 mg/dL (7-21)
[2022-11-01 22:42] LABS: CLARITY URINE CLOUDY (CLEAR); COLOR URINE DARK YELLOW (YELLOW); GLUCOSE URINE NEGATIVE (NEGATIVE); KETONES URINE TRACE (NEGATIVE); LEUKOCYTE ESTERASE URINE 2+ (NEGATIVE); NITRITE URINE NEGATIVE (NEGATIVE); OCCULT BLOOD URINE TRACE (NEGATIVE); PH URINE 5.5 (4.5-8.0); PROTEIN URINE 2+ (NEGATIVE); SPECIFIC GRAVITY URINE 1.018 (1.005-1.030)
[2022-11-01 22:56] LABS: BACTERIA URINE 1+; SQUAMOUS EPITHELIAL CELL URINE 1+ /lpf (RARE/1+)
[2022-11-01 22:57] LABS: RBC URINE 0-2 /hpf (0-2); WBC URINE 25-50 /hpf (0-2)
[2022-11-01] MEDS ORDERED: CEFTRIAXONE 1GM PREMIX 50 ML IV ONE (23:00)
[2022-11-02] MEDS ORDERED: ONDANSETRON HCL 4MG/2ML INJ IV NR (01:30)
[2022-11-02] MEDS ORDERED: MORPHINE SULFATE 4 MG/ML CPJ (NOT FOR IM USE) IV NR (01:30)
[2022-11-02] MEDS ORDERED: CEFTRIAXONE 1GM PREMIX 50 ML IV NR (01:30)
[2022-11-02] MEDS: SODIUM CHLORIDE 0.9% 1,000 ML IV NR ×2 (01:56→03:29)
[2022-11-02 04:35] VITALS: BP 154/75; PULSE 85; RESP 20; TEMP 97.7
[2022-11-02 06:29] VITALS: BP 154/75; PULSE 87; RESP 20; TEMP 97.7
[2022-11-02] MEDS ORDERED: ACETAMINOPHEN 325MG TABLET PO PRN ×2 (07:00)
[2022-11-02] MEDS ORDERED: ONDANSETRON HCL 4MG/2ML INJ IV PRN (07:00)
[2022-11-02] MEDS ORDERED: LORAZEPAM 0.5MG TABLET PO PRN (07:00)
[2022-11-02] MEDS ORDERED: CLONIDINE 0.1MG TABLET PO PRN (07:00)
[2022-11-02] MEDS ORDERED: NALOXONE HCL 0.4MG/ML VIAL IV PRN (07:00)
[2022-11-02] MEDS ORDERED: IPRATROPIUM/ALBUTEROL 0.5-3(2.5)MG/3ML NEB HHN PRN (07:00)
[2022-11-02 08:00] VITALS: BP 105/72; PULSE 85; RESP 19; TEMP 97.9
[2022-11-02 09:00] LABS: INDEX HEMOLYSI 1 (1-3)
[2022-11-02] MEDS ORDERED: DOCUSATE SODIUM 100MG CAPSULE PO PRN (09:00)
[2022-11-02 09:03] LABS: AMYLASE 83 IU/L (25-115)
[2022-11-02 12:00] VITALS: BP 110/70; PULSE 80; RESP 22; TEMP 98.1
[2022-11-02 12:14] LABS: *AMPHETAMINES SCREEN URINE NEGATIVE (NEGATIVE); *BARBITURATES SCREEN URINE NEGATIVE (NEGATIVE); *BENZODIAZEPINES SCREEN URINE NEGATIVE (NEGATIVE); *COCAINE SCREEN URINE PRESUMTIVE POSITIVE (NEGATIVE); CANNABINOID URINE SCREEN PRESUMTIVE POSITIVE (NEGATIVE); ECSTASY MDMA SCREEN URINE NEGATIVE (NEGATIVE); OPIATES URINE SCREEN NEGATIVE (NEGATIVE); PHENCYCLIDINE URINE SCREEN NEGATIVE (NEGATIVE)
[2022-11-02] MEDS: SODIUM CHLORIDE 0.9% 1,000 ML IV SCH ×2 (14:17→20:20)
[2022-11-02] MEDS: MORPHINE SULFATE 2 MG/ML CPJ (NOT FOR IM USE) IV PRN ×2 (14:59→22:19)
[2022-11-02 20:00] VITALS: BP 134/76; PULSE 64; RESP 20; TEMP 97.9
[2022-11-03] VITALS: BP 128/69; PULSE 75; RESP 20; TEMP 99.7
[2022-11-03] MEDS: MORPHINE SULFATE 2 MG/ML CPJ (NOT FOR IM USE) IV PRN ×4 (02:26→21:36)
[2022-11-03] MEDS: SODIUM CHLORIDE 0.9% 1,000 ML IV SCH ×2 (03:00→09:40)
[2022-11-03 04:00] VITALS: BP 90/53; PULSE 75; RESP 21; TEMP 97.9
[2022-11-03] MEDS: CEFTRIAXONE 1,000 MG in DEXTROSE 5% WATER 50 ML IV SCH (06:58)
[2022-11-03 07:57] LABS: BASOPHILS % 0.5 % (0.0-2.0); EOSINOPHILS % 2.4 % (0.0-5.0); HEMATOCRIT. 35.2 % (42.0-52.0); LYMPHOCYTES % 13.3 % (20.0-50.0); MEAN CORPUSCULAR HEMOGLOBIN 27.2 pg (28.0-32.0); MONOCYTES % 10.7 % (2.0-8.0); NEUTROPHILS % 73.1 % (40.0-76.0); PLATELET 167 x1000/uL (130-400); RED CELL DISTRIBUTION WIDTH 16.4 % (11.6-14.6); WHITE BLOOD COUNT 7.8 x1000/uL (4.5-11.0)
[2022-11-03 08:00] VITALS: BP 148/61; PULSE 65; RESP 18; TEMP 97.8
[2022-11-03 09:01] LABS: CHLORIDE 108 mEq/L (98-107); INDEX HEMOLYSI 1 (1-3); INDEX ICTERIC 1 (1-4); INDEX LIPEMIC 1 (1-3); POTASSIUM 3.7 mEq/L (3.5-5.1); SODIUM 137 mEq/L (136-145)
[2022-11-03 09:08] LABS: CARBON DIOXIDE 23 mEq/L (21-32); CREATININE 0.7 mg/dL (0.6-1.3); GLUCOSE 169 mg/dL (70-105); UREA NITROGEN BLOOD 6 mg/dL (7-21)
[2022-11-03 12:00] VITALS: BP 141/71; PULSE 65; RESP 18; TEMP 97.5
[2022-11-03 16:00] VITALS: BP 133/88; PULSE 60; RESP 18; TEMP 97.6
[2022-11-03 20:00] VITALS: BP 160/62; PULSE 73; RESP 18; TEMP 95.7
[2022-11-04] VITALS: BP 137/58; PULSE 63; RESP 18; TEMP 96.5
[2022-11-04] MEDS: CEFTRIAXONE 1,000 MG in DEXTROSE 5% WATER 50 ML IV SCH (00:42)
[2022-11-04] MEDS: SODIUM CHLORIDE 0.9% 1,000 ML IV SCH ×2 (04:52→17:28)
[2022-11-04 07:46] LABS: BASOPHILS % 0.5 % (0.0-2.0); DIFFERENTIAL COMMENT 0; EOSINOPHILS % 2.2 % (0.0-5.0); HEMATOCRIT. 35.1 % (42.0-52.0); LYMPHOCYTES % 15.7 % (20.0-50.0); MEAN CORPUSCULAR HEMOGLOBIN 27.2 pg (28.0-32.0); MEAN CORPUSCULAR HGB CONC 34.1 g/dL (31.0-37.0); MEAN CORPUSCULAR VOLUME 79.9 fL (80.0-94.0); MEAN PLATELET VOLUME 8.9 fl (7.4-10.4); MONOCYTES % 12.7 % (2.0-8.0); NEUTROPHILS % 68.9 % (40.0-76.0); PLATELET 197 x1000/uL (130-400); RED BLOOD CELL COUNT 4.39 mill/uL (4.7-6.1); RED CELL DISTRIBUTION WIDTH 16.6 % (11.6-14.6); WHITE BLOOD COUNT 7.2 x1000/uL (4.5-11.0)
[2022-11-04 07:52] LABS: PROTHROMBIN TIME 11.2 sec (9.6-11.0)
[2022-11-04 08:00] VITALS: BP 124/79; PULSE 59; RESP 20; TEMP 98.4
[2022-11-04 08:45] LABS: CHLORIDE 106 mEq/L (98-107); INDEX HEMOLYSI 1 (1-3); INDEX ICTERIC 1 (1-4); INDEX LIPEMIC 1 (1-3); POTASSIUM 3.7 mEq/L (3.5-5.1); SODIUM 135 mEq/L (136-145)
[2022-11-04 09:01] LABS: CALCIUM 8.5 mg/dL (8.5-10.1); CARBON DIOXIDE 22 mEq/L (21-32); CREATININE 0.7 mg/dL (0.6-1.3); GLUCOSE 194 mg/dL (70-105); UREA NITROGEN BLOOD 6 mg/dL (7-21)
[2022-11-04 12:00] VITALS: BP 155/72; PULSE 56; RESP 19; TEMP 98.2
[2022-11-04] MEDS: HYDROCODONE/ACETAMINOPHEN 5/325MG TABLET PO PRN (17:27)
[2022-11-04 20:00] VITALS: BP 144/65; PULSE 60; RESP 18; TEMP 96.5
[2022-11-05] VITALS: BP 147/51; PULSE 63; RESP 18; TEMP 96.6
[2022-11-05] MEDS: CEFTRIAXONE 1,000 MG in DEXTROSE 5% WATER 50 ML IV SCH (01:47)
[2022-11-05] MEDS: HYDROCODONE/ACETAMINOPHEN 5/325MG TABLET PO PRN (01:48)
[2022-11-05 04:00] VITALS: BP 140/67; PULSE 60; RESP 18; TEMP 96.4
[2022-11-05] MEDS: MORPHINE SULFATE 2 MG/ML CPJ (NOT FOR IM USE) IV PRN (06:31)
[2022-11-05 06:34] LABS: BASOPHILS % 1.4 % (0.0-2.0); DIFFERENTIAL COMMENT 0; EOSINOPHILS % 2.2 % (0.0-5.0); HEMATOCRIT. 34.9 % (42.0-52.0); HEMOGLOBIN. 11.7 g/dL (14.0-18.0); LYMPHOCYTES % 17.8 % (20.0-50.0); MEAN CORPUSCULAR HEMOGLOBIN 26.7 pg (28.0-32.0); MEAN CORPUSCULAR HGB CONC 33.6 g/dL (31.0-37.0); MEAN CORPUSCULAR VOLUME 79.5 fL (80.0-94.0); MONOCYTES % 10.4 % (2.0-8.0); NEUTROPHILS % 68.2 % (40.0-76.0); PLATELET 194 x1000/uL (130-400); RED BLOOD CELL COUNT 4.39 mill/uL (4.7-6.1); RED CELL DISTRIBUTION WIDTH 16.3 % (11.6-14.6); WHITE BLOOD COUNT 6.9 x1000/uL (4.5-11.0)
[2022-11-05 06:58] LABS: CHLORIDE 107 mEq/L (98-107); INDEX HEMOLYSI 1 (1-3); INDEX ICTERIC 1 (1-4); INDEX LIPEMIC 1 (1-3); POTASSIUM 3.7 mEq/L (3.5-5.1); SODIUM 135 mEq/L (136-145)
[2022-11-05 07:03] LABS: CALCIUM 8.1 mg/dL (8.5-10.1); CARBON DIOXIDE 24 mEq/L (21-32); CREATININE 0.7 mg/dL (0.6-1.3); GLUCOSE 214 mg/dL (70-105); UREA NITROGEN BLOOD 6 mg/dL (7-21)
[2022-11-05 08:00] VITALS: BP 136/84; PULSE 55; RESP 20; TEMP 97.7
[2022-11-05 12:00] VITALS: BP 129/67; PULSE 64; RESP 20; TEMP 98.7
[2022-11-05 12:49] VITALS: BP 136/84; PULSE 55; TEMP 97.7; O2SAT 100
== END 2022-11-05 13:54 | disposition home or self-care (01) | DRG 282 ==
LOC: ER 19:58 → 6EST 11-02 00:45
PROVIDERS: ADMIT Family Medicine Adult Medicine; ATTEND Family Medicine Adult Medicine
DX: K85.10 Biliary acute pancreatitis without necrosis or infection (principal); G82.50 Quadriplegia, unspecified; D50.9 Iron deficiency anemia, unspecified; E11.65 Type 2 diabetes mellitus with hyperglycemia; E78.00 Pure hypercholesterolemia, unspecified; F17.210 Nicotine dependence, cigarettes, uncomplicated; I10 Essential (primary) hypertension; N39.0 Urinary tract infection, site not specified; Z82.49 Family history of ischemic heart disease and other diseases of the circulatory system; Z79.4 Long term (current) use of insulin; K80.20 Calculus of gallbladder without cholecystitis without obstruction
CPT/HCPCS: 36415; 71045; 74176; 80048; 80053; 80061; 80305; 81003; 82150; 83735; 85025; 99285; C1893; J0696; J2270; J2405; J7030; J7060